=== PATIENT | male | born 1990 | race Caucasian/White ===

== ENCOUNTER 2024-11-30 15:59 | Emergency (ER) | payer OTHER, SELFPAY ==
[2024-11-30 16:14] VITALS: BP 152/95; PULSE 84; RESP 20; TEMP 36.5; O2SAT 98; BMI 27.8
--- NOTE | 2024-11-30 16:46 | CRLHL7_ITS ---
For Patients: As a result of the Cures Act, medical imaging exams and procedure reports are released immediately into your electronic medical record. You may view this report before your referring provider. If you have questions, please contact your health care provider. Indication: RIGHT FOREARM PAIN, PIPE CRUSHED ARM Technique: Two views of the right forearm Comparison: None Findings/Impression: No acute fracture or malalignment. No elbow effusion. The bones and soft tissues are unremarkable. Dictated by Ovi Lowery MD @ 11/30/2024 6:03:49 PM (Electronically Signed)
--- NOTE | 2024-11-30 17:16 | ED_ITS ---
HPI - General Adult General Chief complaint: Extremity Pain/Injury, Upper Stated complaint: arm got crushed Time Seen by Provider: 11/30/24 16:57 History of Present Illness HPI narrative: Arrives with right arm injury and pain . Reports a large pipe at work fell onto his arm, crushing it against another pipe. Denies other injuries, alert and oriented, ABCs intact. 34-year-old man presenting to the emergency department following a crush injury to his right arm. On the job working with large still pipes when 1 swung back pinning his arm between another. Is having a good deal of pain in the upper aspect of the right forearm in particular. No neck or back pain. No head injury. No hand or finger symptoms other than it hurts in the area of injury to open and close the hand Related Data Home Medications ?Medication ?Instructions ?Recorded ?Confirmed No Known Home Medications 11/30/2411/03 Allergies Allergy/AdvReac Type Severity Reaction Status Date / Time No Known Drug Allergies Allergy Verified 11/30/24 16:14 Review of Systems Status of ROS: Reports: 6 or more systems reviewed and unremarkable except as noted in History and below [facility] Social History Smoking Status: Never smoker How often do you have a drink containing alcohol: monthly or less AUDIT-C Alcohol total score: 1 Non-prescribed substance use: denies use Exam Narrative: Exam Narrative: Pleasant. Clearly uncomfortable favoring his right arm. Head is atraumatic. Neck is supple. Breathing easily. Pain elicited with opening and closing his hand. Is well-perfused peripherally. Was difficult to remove long sleeve T- shirt from this right arm. Tattoos. There is some abrasion at the lower inner upper arm. Primary point of impact though I think is the proximal inner forearm. There is moderate swelling here consistent with hematoma. Exquisitely tender to palpation this area. Does not appear to have had injury to the joint. No discrete joint swelling. No pain to bony palpation.. Rotation of the forearm causes pain. Flexion extension of the wrist as well causes pain. Const: Vital Signs, click to edit/add: Vital Signs - 24 hr 11/30/24 16:14 Temperature 97.7 F Pulse Rate [Pulse Oximeter] 84 Respiratory Rate 20 Blood Pressure [Le ft Upper Arm] 152/95 H Pulse Oximetry 98 Oxygen Delivery Me thod Room Air Documenting provider has reviewed patient's vital signs: yes Course Vital Signs Vital signs: Initial Vital Signs Temperature 97.7 F 11/30/24 16:14 Temperature Source Temporal Artery Scan 11/30/24 16:14 Pulse Rate 84 11/30/24 16:14 Respiratory Rate 20 11/30/24 16:14 Blood Pressure 152/95 H 11/30/24 16:14 Blood Pressure Mean 114 H 11/30/24 16:14 Blood Pressure Position Sitting 11/30/24 16:14 Pulse Oximetry 98 11/30/24 16:14 Oxygen Delivery Method Room Air 11/30/24 16:14 Vital Signs Temperature 97.7 F 11/30/24 16:14 Pulse Rate 84 11/30/24 16:14 Respiratory Rate 20 11/30/24 16:14 Blood Pressure 152/95 H 11/30/24 16:14 Pulse Oximetry 98 11/30/24 16:14 Oxygen Delivery Method Room Air 11/30/24 16:14 Temperature 97.7 F 11/30/24 16:14 Pulse Rate 84 11/30/24 16:14 Respiratory Rate 20 11/30/24 16:14 Blood Pressure 152/95 H 11/30/24 16:14 Pulse Oximetry 98 11/30/24 16:14 Oxygen Delivery Method Room Air 11/30/24 16:14 Medical Decision Making MDM Narrative Medical decision making narrative: I think primary injury is hematoma. Forearm x-rays though have been ordered. Is not demonstrating symptoms of compartment syndrome and this injury does not appear to be circumferential but would certainly need to monitor for this. Pain with distal movement is related to insertion points that would run underneath or through the musculature/hematoma. Possible avulsion fracture though as well would be prudent to look at imaging. X-rays of the right forearm independently reviewed by me look to be without acute bony abnormality. Soft tissue swelling noted. Indication: RIGHT FOREARM PAIN, PIPE CRUSHED ARM Technique: Two views of the right forearm Comparison: None Findings/Impression: No acute fracture or malalignment. No elbow effusion. The bones and soft tissues are unremarkable. Dictated by Ovi Lowery MD @ 11/30/2024 6:03:49 PM Discussed rest and icing, worsened signs and symptoms. Given Kevin wrap and sling. See patient discharge plan for further discussion Get an ice bag as discussed and ice a few times daily over the next few days. Can hold the ice pack on with the supplied Kevin wraps. Might also apply Kevin wraps for comfort otherwise. Wear the arm sling over the next few days. Can take your arm out and stretch little bit. I would like you to follow-up early next week for re-evaluation either with sports medicine or orthopedics. Orthopedics phone number locally is [phone]. Be seen sooner for marked increase in pain or numbness into your hand, uncontrolled pain generally. Can take up to 800 mg of ibuprofen or up to 1000 mg of acetaminophen per dose. Discharge Plan Discharge Clinical Impression: Crush injury arm, Abrasion, Hematoma Patient Disposition: Home, Self-Care Condition: Stable Additional Instructions: Get an ice bag as discussed and ice a few times daily over the next few days. Can hold the ice pack on with the supplied Kevin wraps. Might also apply Kevin wraps for comfort otherwise. Wear the arm sling over the next few days. Can take your arm out and stretch little bit. I would like you to follow-up early next week for re-evaluation either with sports medicine or orthopedics. Orthopedics phone number locally is [phone]. Be seen sooner for marked increase in pain or numbness into your hand, uncontrolled pain generally. Can take up to 800 mg of ibuprofen or up to 1000 mg of acetaminophen per dose. Prescriptions: No Action No Known Home Medications Stand Alone Forms: [employer] Info Instructions
--- OUTSIDE RECORDS SUMMARY | 2024-11-30 18:09 | XMS_ITS | Clinical Summary ---
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 Gender Identity Not on file Sexual Orientation Not on file Obstetrics History Last Filed Vital Signs Vital Sign Reading Time Taken Comments Blood Pressure 125/64 08/15/2016 7:00 PM CDT Pulse 70 08/15/2016 7:00 PM CDT Temperature 37.1 C (98.8 F) 08/15/2016 7:00 PM CDT Respiratory Rate 16 08/15/2016 7:00 PM CDT Oxygen Saturation 99% 08/15/2016 7:00 PM CDT Inhaled Oxygen Concentration - - Weight 74.4 kg (164 lb) 08/15/2016 7:00 PM CDT Height - - Body Mass Index - - Plan of Treatment Not on file Insurance [employer] Care Teams Plant Machinist Relationship Specialty Start Date End Date Pcp, No . PCP - General 04/28/13
--- OUTSIDE RECORDS SUMMARY | 2024-11-30 18:09 | XMS_ITS | Clinical Summary ---
Author Organization [facility] Address [address] [place] [address] Care Team Providers Care Resource Specialist Teacher Name Role Phone Charley Hurst D.O. Primary Care Provider [phone] Source Comments Patient records contain information from all sites at [facility]. For routine questions regarding patient records, call [phone] during business hours, M-F 8:00 AM - 5:00 PM Central Time. Record requests for emergency care only can be directed to [phone] at any time.[facility] Allergies No known active allergies Medications albuterol (Ventolin HFA) 90 mcg/actuation inhaler Inhale 2 puffs every 4 (four) hours as needed for wheezing or shortness of breath. 18 g 3 Active Active Problems Problem Noted Date Diagnosed Date Acne 06/20/2010 Undescended Testis 09/18/2005 Immunizations Immunization Administration Dates Next Due MMR 01/03/2005 Td Preservative Free (TENIVAC, DECAVAC) 01/04/20 05 Social History Tobacco Use Types Packs/Day Years Used Date Smoking Tobacco: Former Cigarettes Smokeless Tobacco: Current Tobacco Cessation:Ready to Q uit: Not Asked; Counseling Given: Not Answered [facility] Utilities Answer Date Recorded In the past 12 months has th e electric, gas, oil, or water company threatened to shut off services in your home? No 03/22/2024 Hunger Vital Sign Answer Date Recorded Within the past 12 months, y ou worried that your food would run out before you got the money to buy more. Never true 03/22/20 24 Within the past 12 months, t he food you bought just didn't last and you didn't have money to get more. Never true 03/22/2024 PRAPARE - Transportation Answer Date Re corded In the past 12 months, has l ack of transportation kept you from medical appointments or from getting medications? No 03/04 In the past 12 months, has l ack of transportation kept you from meetings, work, or from getting things needed for daily living? No 03/22/2024 Housing Stability Answer Date Recorded What is your living situation today? 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 Legal Sex Male 4:25 AM LYMPHEDEMA THERAPIST Gender Identity Male 03/22/2024 7:18 PM LYMPHEDEMA THERAPIST Sexual Orientation Straight 03/22/2024 7: 18 PM LYMPHEDEMA THERAPIST Last Filed Vital Signs Vital Sign Reading Time Taken Comments Blood Pressure 133/84 03/07/2023 11:20 AM CDT Pulse 87 03/07/2023 11:20 AM CDT Temperature 37.6 C (99.7 F) 03/07/2023 11:20 AM CDT Respiratory Rate 16 03/07/2023 11:20 AM CDT Oxygen Saturation 98% 03/07/2023 11:20 AM CDT Inhaled Oxygen Concentration - - Weight 77.2 kg (170 lb 3.1 oz) 03/07/2023 11:20 AM CDT Height 177 cm (5' 9.69) 12/03/2020 8:03 AM CDT Body Mass Index 24.64 12/03/2020 8:03 AM CDT Plan of Treatment Health Maintenance Due Date Last Done Comments HIV Screening 1992 Hepatitis C Screening 1992 DTaP,Tdap,and Td Vaccines (2 - Tdap) 01/04/2005 01/03/2005 Hepatitis B Vaccines (1 of 3 - 19+ 3-dose series) 10/28/2011 HPV Vaccines (1 - 3-dose SCD M series) 10/28/2019 COVID-19 Vaccine ( - 2023-2 5 season) 2024 Depression Screening (Annual PHQ-2) 05/04/2024 Influenza Vaccine (#1) 2025 IPV Vaccines Aged Out No longer eligi ble based on patient's age to complete this topic Pneumococcal vaccine (0-49 years) Aged Out No longer eligible based on patient's age to complete this topic Insurance [facility] Care Teams Resource Specialist Teacher Relationship Specialty Start Date End Date Charley Hurst D.O. [address] [id number] PCP - General 01/03/24
== END 2024-11-30 18:12 | disposition home or self-care (01) ==
LOC: ED 18:07
PROVIDERS: Emergency Provider Family Medicine
DX: S40.021A Contusion of right upper arm, initial encounter (principal); S50.811A Abrasion of right forearm, initial encounter; W23.0XXA Caught, crushed, jammed, or pinched between moving objects, initial encounter; Y99.0 Civilian activity done for income or pay
CPT/HCPCS: 73090; 99283; 99284